=== PATIENT | female | born 1965 | race Caucasian/White ===

== ENCOUNTER 2017-02-20 19:37 | Emergency (ER) | payer BC ==
--- NOTE | 2017-02-20 22:26 | ED ---
HPI Diabetic - HPI Summary HPI Summary: DM 2, hypothyroid pt here w/ low blood sugar yesterday and today. Yesterday, was at work passing meds when she noticed she felt sweaty and sick - figured this was low blood sugar so ate some ana crackers and 2 juices. When she checked her blood glucose it was 120. [place] fine the rest of the day. Then this morning, she had a protein bar for breakfast. Took her metformin 30 minutes later. She's had URI sx over the past 4 days as well and didn't want to cough all over at work today so took a Dayquil this morning (w/ dextromethorphan , phenylephrine and acetaminophen). Then on her way to work a few hours later, had a peanut butter and jelly sandwich. Right before going into work, took another Dayquil (4 hours after 1st dose this morning) and not even an hour later , had lightheadedness, sweats and dizziness. [place] like her blood sugar was low again and when she checked it, was 76 at 16:30. She ate some mini candy bars followed by a meal of chicken w/ potatoes at 18:30. Blood glucose was 87 at 19: 00 so she had a protein bar as well. Feels better now, but still not quite herself. Not sure when or what her last HGA1C was. Reports she had a brief moment of chest pain on her way here tonight - believes this was anxiety as she' s had it before with anxiety. Denies jaw pain, N/V, SOB, diaphoresis, worsening of fatigue w/ this and it passed quickly when she talked calmly with herself and reduced her anxiety. Reports she had borderline diabetes for years and then 1.5 years ago was rx'd metformin which she takes 500mg BID w/ meals. She has never had any issues with this medication nor has she had low blood sugar before. She denies change in diet and no more caffeine than usual. Reports she typically drinks 2 bottles of Diet Pepsi a day and today only got through 1/2 of one bottle. Does not use tobacco, cocaine, etc. No ETOH as of late. Has not been more physically active than usual but does report a lot of stress lately d/t multiple deaths in the family. She also believes she contracted her URI sx from her grandson who has had a cough and she's been with him in close quarters. Denies fever, chill, ST, rhinorrhea, nasal congestion, ST, trouble breathing, N/ V/D, ab pain. Appetite has been fine. No rash. Again, took dayquil as she's had a dry, annoying tickle in her throat cough - otherwise handling URI well. She also has hypothyroidism and has taken 112mcg of synthroid for years. Not sure last time she had her thyroid assessed. - History Of Current Complaint Chief Complaint: EDDiabeticProb Time Seen by Provider: 02/20/17 21:25 Hx Obtained From: Patient, Family/Disaster Recovery Specialist - niece - Allergies/Home Medications Allergies/Adverse Reactions: Allergies Allergy/AdvReac Type Severity Reaction Status Date / Time Procaine [From Novocain] Allergy Severe Airway Verified 02/20/17 20:05 Obstruction Celecoxib [From Celebrex] Allergy Unknown Verified 02/20/17 20:05 Reaction Details Ketorolac Tromethamine AdvReac Headache Verified 02/20/17 20:05 [From Toradol] PMH/Surg Hx/FS Hx/Imm Hx Previously Healthy: Yes Endocrine/Hematology History: Reports: Hx Diabetes - type 2, Other Endocrine/ Hematological Disorders - 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); hypothyriodism Denies: Hx Thyroid Disease Cardiovascular History: Reports: Hx Hypercholesterolemia - triglyceridemia Denies: Hx Cardiac Arrest, Hx Hypertension, Hx Myocardial Infarction Respiratory History: Reports: Hx Seasonal Allergies, Hx Sleep Apnea - new cpap user Denies: Hx Asthma, Hx Chronic Obstructive Pulmonary Disease (COPD) GI History: Reports: Hx Gastroesophageal Reflux Disease, Other GI Disorders - fatty liver Denies: Hx Ulcer Musculoskeletal History: Reports: Other Musculoskeletal History - joint & neck pain, mylagia, itchy skin, no rash Neurological History: Reports: Hx Headaches, Hx Migraine, Other Neuro Impairments/Disorders - some numbness/tingling (right) arm Psychiatric History: Reports: Hx Depression - Cancer History Hx Chemotherapy: No Hx Radiation Therapy: No - Surgical History Surgery Procedure, Year, and Place: hysterectomy 2004. 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 Negative: Shortness Of Breath Negative: Abdominal Pain, Vomiting, Diarrhea, Nausea Negative: burning, dysuria, discharge, frequency, flank pain Negative: Arthralgia, Myalgia Negative: Rash Neurological: Negative Psychological: Other - SEE hpi All Other Systems Reviewed And Are Negative: Yes Physical Exam Triage Information Reviewed: Yes Vital Signs On Initial Exam: Initial Vitals Temp Pulse Resp BP Pulse Ox 97.0 F 80 16 144/86 98 02/20/17 19:55 02/20/17 19:55 02/20/17 19:55 02/20/17 19:55 02/20/17 19:55 Vital Signs Reviewed: Yes Appearance: Positive: Well-Appearing, No Pain Distress, Obese Skin: Positive: Warm, Dry Head/Face: Positive: Normal Head/Face Inspection Eyes: Positive: Normal, EOMI, Conjunctiva Clear. Negative: Conjunctiva Inflammed, Discharge ENT: Positive: Normal ENT inspection, Hearing grossly normal, Pharynx normal, TMs normal. Negative: Nasal congestion, Nasal drainage, Tonsillar swelling, Tonsillar exudate Neck: Positive: Supple, Nontender Respiratory/Lung Sounds: Positive: Clear to Auscultation, Breath Sounds Present. Negative: Rales, Rhonchi, Wheezes Cardiovascular: Positive: Normal, RRR, S1, S2. Negative: Murmur, Rub Abdomen Description: Positive: Nontender, Soft Bowel Sounds: Positive: Present Musculoskeletal: Positive: Normal, Strength/ROM Intact Neurological: Positive: Normal, Sensory/Motor Intact, Alert, Oriented to Person Place, Time, CN Intact II-III Psychiatric: Positive: Normal - concerned but calm and informative - [place] Coma Scale Coma Scale Total: 15 Diagnostics - Vital Signs Vital Signs Temp Pulse Resp BP Pulse Ox 02/20/17 19:55 97.0 F 80 16 144/86 98 - Laboratory Lab Results: Lab Results 02/20/17 Range/Units 21:31 POC Glucose (mg/dL) 111 H (74-106) mg/dL Result Diagrams: 02/20/17 22:21 02/20/17 22:21 Lab Statement: Any lab studies that have been ordered have been reviewed, and results considered in the medical decision making process. Diabetic Course/Dx - Course Course Of Treatment: Pt reports h/o hypoglycemia past 2 days. Glucose is WNL while here tonight as well as vitals and other labs. Discussed her OTC cold medication w/ phenylephrine could have contributed to sx as well as her chronic stress. No acute life threatening issues found here tonight, including thyroid storm, MT and/or sepsis. Pt is w/o sx since here for the past 5 hours w/o food. Okay to d/c - advised to avoid stimulants, cold meds in general and stop metformin until seen by PCP tomorrow for further guidance. Reviewed danger s/sx of when to return - pt and agree w/ plan. - Diagnoses Provider Diagnoses: Hypoglycemia Discharge - Discharge Plan Condition: Stable Disposition: HOME Patient Education Materials: Diabetic Hypoglycemia (ED) Referrals: Kirt Cam MD [Primary Care Provider] - Additional Instructions: Avoid stimulants (ie. caffeine, chocolate, Sudafed, etc) and cold medicine Eat high fiber, protein rich foods with healthy fat every 3-4 hours Do not over-hydrate Follow-up with PCP tomorrow *If you have chest pain, shortness of breath, fever, vomiting, diarrhea or low blood glucose you cannot increase with food, return to ED
[2017-02-20 22:38] LABS: Hematocrit 41 % (35-47); Hemoglobin 13.8 g/dl (12.0-16.0); Mean Corpuscular HGB Conc 34 g/dl (31-36); Mean Corpuscular Hemoglobin 29 pg (27-31); Mean Corpuscular Volume 85 fL (80-97); Mean Platelet Volume 8 um3 (7.4-10.4); Red Blood Count 4.77 10^6/ul (4.0-5.4); Red Cell Distribution Width 13 % (10.5-15); White Blood Count 9.6 10^3/ul (3.5-10.8)
[2017-02-20 22:43] LABS: Urine Bacteria Absent (Absent); Urine Bilirubin Negative (Negative); Urine Glucose Negative (Negative); Urine Nitrite Negative (Negative)
[2017-02-20 22:55] LABS: Albumin 4.5 g/dL (3.2-5.2); BUN/Creatinine Ratio 14.6 (8-20); C Reactive Protein 3.7 mg/L (< 5.00); Calcium 9.9 mg/dL (8.6-10.3); EGFR African American 94.9 (>60); EGFR Non-African American 73.8 (>60); Globulin 3.3 g/dL (2-4); Potassium 4.1 mmol/L (3.5-5.0); Total Bilirubin 0.3 mg/dL (0.2-1.0); Total Protein 7.8 g/dL (6.4-8.9)
[2017-02-21 00:13] LABS: TSH (Thyroid Stimulating Horm) 0.36 mcIU/mL (0.34-5.60)
[2017-02-21 00:20] LABS: Free T4 1.04 ng/dL (0.61-1.12)
[2017-02-21 00:39] VITALS: BP 119/74
== END 2017-02-21 00:38 | disposition home or self-care (01) ==
LOC: ED 19:37
DX: E16.2 Hypoglycemia, unspecified (principal); R05 Cough; Z86.39 Personal history of other endocrine, nutritional and metabolic disease; Z87.891 Personal history of nicotine dependence
CPT/HCPCS: 36415; 80053; 81003; 81015; 83605; 84439; 84443; 84484; 85025; 86140; 87086; 93005; 99282

== ENCOUNTER 2018-03-17 11:58 | Observation (INO) | payer BC, OTHER ==
--- OUTSIDE RECORDS SUMMARY | 2018-03-17 12:56 | XMS REPORT ---
:1965 External Reference #:[id number] Author Organization [facility] Address [address] [address] Phone [phone] Care Team Providers Name Role Phone Kirt Cam MD Primary Care Physician Unavailable Payers Type Date Identification Numbers Payment Provider Subscriber Commercial Policy Number: [id number] [employer] Gema April PayID: [id number] [address] [address] DAVID Maldonado [address] Medigap Part B Policy Number: [id number] [facility] Ppo Esvin April Group Number: [id number] [address] PayID: [id number] DAVID Albarran [address] Commercial Expires: 2017 Policy Number: [facility] Esvin April [id number] (Oon) Group Number: [id number] [address] PayID: [id number] Problems Date Description Provider Status Onset: 09/22/2012 Multiple joint pain Matthew Diego M.D. Active Onset: 09/22/2012 Immunological Findings Nonspec Matthew Diego M.D. Active Other & Unspec Onset: 12/24/2012 Medications [facility] (Current) Matthew Diego M.D. 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- Family History Date Family Member(s) Problem(s) Comments General non contributory Father Thryroid, HighCHO Mother from breast cancer Siblings Sister w/fibromyalgia, osteoposis; sister w/asthma,HTN,HighCHO Siblings Brother w/highCHO, obesity, HTN Siblings 3 Social History Type Date Description Comments Marital Status Lives With Family Occupation Currently Working Cigarette Use Quit 10 Years Ago ETOH Use Denies alcohol use Smoking Patient is a former smoker Recreational Drug Use Denies Drug Use Daily Caffeine Drinks diet soda 2-3 a day Exercise Type/Frequency Exercises sporadically Allergies, Adverse Reactions, Alerts Date Description Reaction Status Severity Comments 01/20/2012 Novocain active 03/02/2012 Diclofenac gi upset active Medications Medication Date Status Form Strength Qnty SIG Indications Ordering Provider Levothyroxine Sodium 10/19 Active Tablets 112mcg 1 by mouth every day Singulair 10/19 Active Tablets 10mg 1 by mouth every day Lisinopril Active Tablets 10mg 30tab 1 po qd Unknown / s Zocor Active Tablets 40mg 90tab 1 po qhs / s Paxil Active Tablets 40mg 30tab 1 po qd / s Protonix Active Tablets 40mg 1 by / DR mouth every day Tramadol HCL Active Tablets 50mg 1-2 tablets every 6 hours as needed Cyclobenzaprine HCL Active Tablets 5mg take one tablet by mouth every 8 hours prn. may take a second tablet if first not effetive . Januvia Active Tablets 100mg 1 by Other / mouth Physician daily Practices Omeprazole 10/19 Hx Capsules 20mg [address] mouth every day Celebrex 10/19 Hx Capsules 200mg 1 by mouth every day Zyrtec Allergy 10/19 Hx Capsules 10mg 1 by mouth every day as needed Nabumetone 09/21 Hx Tablets 750mg 30tab take one Zsofi s tablet Jeffery, - daily TAPE CUTTING MACHINE OPERATOR 10/19 with food Gabapentin 09/22 Hx Capsules 300mg 120ca 1 po qid 719.49 Zsofia ps Jeffery, - TAPE CUTTING MACHINE OPERATOR 10/19 Hydroxychloroquine 07/14 Hx Tablets 200mg 60tab take 1 719.49 Matthew s tablet Long Diego - by mouth 10/19 twice a /2014 day pt states she is taking once a day Nabumetone 03/02 Hx Tablets 750mg 60tab take 1 Zsofia /2012 s tablet Jeffery, - by mouth TAPE CUTTING MACHINE OPERATOR 09/21 twice a day pt states she is taking once a day Diclofenac Sodium DR 01/22 Hx Tablets 75mg 60tab [address] eusebio Diego M.D. - twice a Cephalexin Hx Capsules 500mg 21cap tid po Unknown /0000 s - 03/25 Protonix Hx Tablets 20mg 90tab [address] eusebio ames - every Vital Signs Date Vital Result Comment 03/10/2018 Height 59 inches 4'11" Weight 239.38 lb Heart Rate 64 /min BP Systolic Sitting 122 mmHg Lue large cuff BP Diastolic Sitting 72 mmHg Lue large cuff Respiratory Rate 16 /min O2 % BldC Oximetry 97 % On Ra BMI (Body Mass Index) 48.3 kg/m2 09/26/2017 Heart Rate 90 /min BP Systolic Sitting 140 mmHg BP Diastolic Sitting 84 mmHg Respiratory Rate 18 /min Body Temperature 97.0 F 09/10/2017 Height 59 inches 4'11" Weight 237.00 lb Heart Rate 76 /min BP Systolic 130 mmHg BP Diastolic 76 mmHg Respiratory Rate 18 /min Body Temperature 98.5 F BMI (Body Mass Index) 47.9 kg/m2 10/20/2015 Height 60 inches 5'0" Weight 240.00 lb Heart Rate 89 /min BP Systolic Sitting 142 mmHg BP Diastolic Sitting 88 mmHg Respiratory Rate 16 /min O2 % BldC Oximetry 96 % BMI (Body Mass Index) 46.9 kg/m2 Neck Circumference in inches 18 09/02/2014 Height 60 inches 5'0" Weight 245.00 lb Heart Rate 69 /min BP Systolic Sitting 144 mmHg LA reg cuff BP Diastolic Sitting 97 mmHg LA reg cuff Body Temperature 97.7 F O2 % BldC Oximetry 96 % BMI (Body Mass Index) 47.8 kg/m2 04/14/2014 Height 60 inches 5'0" Weight 242.75 lb Heart Rate 70 /min BP Systolic Sitting 118 mmHg BP Diastolic Sitting 78 mmHg Pain Level 5 BMI (Body Mass Index) 47.4 kg/m2 10/04/2013 Weight 244.00 lb Heart Rate 72 /min BP Systolic Sitting 132 mmHg BP Diastolic Sitting 80 mmHg 03/25/2013 Height 60 inches 5'0" Heart Rate 70 /min BP Systolic Sitting 128 mmHg BP Diastolic Sitting 78 mmHg 12/24/2012 Height 60 inches 5'0" Weight 225.00 lb Heart Rate 77 /min BP Systolic Sitting 124 mmHg BP Diastolic Sitting 71 mmHg BMI (Body Mass Index) 43.9 kg/m2 09/22/2012 Height 60 inches 5'0" Weight 236.00 lb Heart Rate 72 /min BP Systolic Sitting 128 mmHg BP Diastolic Sitting 66 mmHg BMI (Body Mass Index) 46.1 kg/m2 07/14/2012 Weight 233.00 lb Heart Rate 70 /min BP Systolic 140 mmHg BP Diastolic 90 mmHg 03/02/2012 Height 61 inches 5'1" Weight 238.00 lb Heart Rate 76 /min BP Systolic Sitting 123 mmHg BP Diastolic Sitting 74 mmHg BMI (Body Mass Index) 45.0 kg/m2 01/20/2012 Height 61 inches 5'1" Weight 240.00 lb Heart Rate 78 /min BP Systolic Sitting 129 mmHg BP Diastolic Sitting 76 mmHg BMI (Body Mass Index) 45.3 kg/m2 Results Test Date Test Result H/L Range Note CBC Auto Diff 10/25/2014 White Blood Count 4.4 10^3/uL Low 4.8-10.8 Red Blood Count 3.83 10^6/uL Low 4.0-5.4 Hemoglobin 13.5 g/dL 12.0-16.0 Hematocrit 37 % 35-47 Mean Corpuscular Volume 97 fL 80-97 Mean Corpuscular Hemoglobin 35 pg High 27-31 Mean Corpuscular HGB Conc 36 g/dL 31-36 Red Cell Distribution Width 13 % 10.5-15 Platelet Count 224 10^3/uL 150-450 Mean Platelet Volume 8 um3 7.4-10.4 Abs Neutrophils 2.1 10^3/uL 1.5-7.7 Abs Lymphocytes 1.8 10^3/uL 1.0-4.8 Abs Monocytes 0.4 10^3/uL 0-0.8 Abs Eosinophils 0.1 10^3/uL 0-0.6 Abs Basophils 0.1 10^3/uL 0-0.2 Abs Nucleated RBC 0 10^3/uL Granulocyte % 47.2 % 38-83 Lymphocyte % 40.1 % 25-47 Monocyte % 8.5 % 1-9 Eosinophil % 3.0 % 0-6 Basophil % 1.2 % 0-2 Nucleated Red Blood Cells % 0 Comp Metabolic Panel 10/25/2014 Sodium 138 mmol/L 133-145 Potassium 4.2 mmol/L 3.5-5.0 Chloride 103 mmol/L 101-111 Co2 Carbon Dioxide 29 mmol/L 22-32 Anion Gap 6 mmol/L 2-11 Glucose 101 mg/dL High 70-100 Blood Urea Nitrogen 10 mg/dL 6-24 Creatinine 0.56 mg/dL 0.51-0.95 BUN/Creatinine Ratio 17.9 8-20 Calcium 9.5 mg/dL 8.6-10.3 Total Protein 6.9 g/dL 6.4-8.9 Albumin 4.4 g/dL 3.2-5.2 Globulin 2.5 g/dL 2-4 Albumin/Globulin Ratio 1.8 1-3 Total Bilirubin 0.40 mg/dL 0.2-1.0 Alkaline Phosphatase 81 U/L 34-104 Alt 25 U/L 7-52 Ast 18 U/L 13-39 Egfr Non- 115.5 >60 Egfr 148.6 >60 1 Laboratory test finding 10/25/2014 Erythrocyte Sed Rate 21 mm/Hr High 0- 14 C Reactive Protein 4.20 mg/L < 5.00 2 [place] (Anti-Nuclear AB) Screen Negative Negative CBC Auto Diff 04/07/2014 White Blood Count 6.2 10^3/uL 4.8-10.8 Red Blood Count 3.42 10^6/uL Low 4.0-5.4 Hemoglobin 12.4 g/dL 12.0-16.0 Hematocrit 34 % Low 35-47 Mean Corpuscular Volume 99 fL High 80-97 Mean Corpuscular Hemoglobin 36 pg High 27-31 Mean Corpuscular HGB Conc 37 g/dL High 31-36 Red Cell Distribution Width 13 % 10.5-15 Platelet Count 193 10^3/uL 150-450 Mean Platelet Volume 9 um3 7.4-10.4 Abs Neutrophils 3.3 10^3/uL 1.5-7.7 Abs Lymphocytes 2.1 10^3/uL 1.0-4.8 Abs Monocytes 0.5 10^3/uL 0-0.8 Abs Eosinophils 0.2 10^3/uL 0-0.6 Abs Basophils 0.1 10^3/uL 0-0.2 Abs Nucleated RBC 0 10^3/uL Comp Metabolic Panel 04/07/2014 Sodium 137 mmol/L 133-145 Potassium 4.1 mmol/L 3.7-5.6 Chloride 103 mmol/L 101-111 Co2 Carbon Dioxide 28 mmol/L 22-32 Anion Gap 6 mmol/L 2-11 Glucose 91 mg/dL 70-100 Blood Urea Nitrogen 11 mg/dL 6-24 Creatinine 0.56 mg/dL 0.51-0.95 BUN/Creatinine Ratio 19.6 8-20 Calcium 9.1 mg/dL 8.6-10.3 Total Protein 6.6 g/dL 6.4-8.9 Albumin 4.1 g/dL 3.2-5.2 Globulin 2.5 g/dL 2-4 Albumin/Globulin Ratio 1.6 1-3 Total Bilirubin 0.30 mg/dL 0.2-1.0 Alkaline Phosphatase 73 U/L 34-104 Alt 23 U/L 7-52 Ast 18 U/L 13-39 Egfr Non- 116.0 >60 Egfr 149.2 >60 3 Laboratory test finding 04/07/2014 Erythrocyte Sed Rate 21 mm/Hr High 0- 14 C Reactive Protein 2.89 mg/L < 5.00 4 [place] (Anti-Nuclear AB) Screen Negative Negative Manual Differential 04/07/2014 Neutrophil % 61 % 38-83 Lymphocytes % 31 % 25-47 Monocytes % 3 % 0-13 Eosinophils % 4 % 0-6 Basophil % 1 % 0-2 RBC Morphology Normal Normal Urinalysis 09/22/2013 Urine Color Yellow Urine Appearance Clear Urine Specific Baisden 1.028 1.010-1.030 Urine Esterase Negative Negative Urine Nitrate Negative Negative Urine Urobilinogen Negative E.U./dL Negative Urine Protein Negative mg/dL Negative Urine pH 5.5 5-9 Urine Blood Negative Negative Urine Ketones Negative mg/dL Negative Urine Bilirubin 1+ Negative Urine Glucose Negative mg/dL Negative Laboratory test finding 09/22/2013 [place] (Anti-Nuclear AB) Negative Negative 5 Screen Comp Metabolic Panel 09/22/2013 Sodium 136 mmol/L 133-145 Potassium 4.1 mmol/L 3.5-5.0 Chloride 100 mmol/L Low 101-111 Co2 Carbon Dioxide 30.0 mmol/L 22-32 Anion Gap 6.0 mmol/L 2-11 Glucose 147 mg/dL High 70-100 Blood Urea Nitrogen 9 mg/dL 6-24 Creatinine 0.70 mg/dL 0.50-1.40 BUN/Creatinine Ratio 12.9 8-20 Calcium 9.6 mg/dL 8.1-9.9 Total Protein 6.5 g/dL 6.2-8.1 Albumin 4.4 g/dL 3.6-5.4 Globulin 2.1 g/dL 2-4 Albumin/Globulin Ratio 2.1 1-3 Total Bilirubin 0.8 mg/dL 0.4-1.5 Alkaline Phosphatase 80 U/L 30-110 Alt 44 U/L 14-54 Ast 40 U/L 12-42 Egfr Non- 89.7 >60 Egfr 115.4 >60 6 Laboratory test 09/22/2013 C Reactive Protein < 0.5 mg/dL Less than 0.5 finding Erythrocyte Sed Rate 10 mm/Hr 0-14 Laboratory test finding 01/11/2013 [facility] (Anti-Nuclear AB) Negative Negative 7 Screen Neutrophil Cytoplasmic AB 01/11/2013 C-Anca Negative Negative P Anca Negative Negative Anca Reviewed By MD Miguelangel Cheney <SEE NOTE> 8 Laboratory test finding 01/11/2013 C Reactive Protein 1.0 mg/dL High Less than 0.5 Erythrocyte Sed Rate 11 mm/Hr 0-14 Comp Metabolic Panel 01/11/2013 Sodium 136 mmol/L 133-145 Potassium 3.7 mmol/L 3.5-5.0 Chloride 104 mmol/L 101-111 Co2 Carbon Dioxide 26.0 mmol/L 22-32 Anion Gap 6.0 mmol/L 2-11 Glucose 89 mg/dL 70-100 Blood Urea Nitrogen 12 mg/dL 6-24 Creatinine 0.70 mg/dL 0.50-1.40 BUN/Creatinine Ratio 17.1 8-20 Calcium 8.9 mg/dL 8.1-9.9 Total Protein 6.9 g/dL 6.2-8.1 Albumin 4.3 g/dL 3.6-5.4 Globulin 2.6 g/dL 2-4 Albumin/Globulin Ratio 1.7 1-3 Total Bilirubin 0.7 mg/dL 0.4-1.5 Alkaline Phosphatase 74 U/L 30-110 Alt 38 U/L 14-54 Ast 23 U/L 12-42 Egfr Non- 90.1 >60 Egfr 115.9 >60 9 CBC With Manual Diff 01/11/2013 White Blood Count 6.1 10^3/uL 4.8-10.8 Red Blood Count 3.79 10^6/uL Low 4.0-5.4 Hemoglobin 13.7 g/dL 12.0-16.0 Hematocrit 38 % 35-47 Mean Corpuscular Volume 99 fL High 80-97 Mean Corpuscular Hemoglobin 36 pg High 27-31 Mean Corpuscular HGB Conc 37 g/dL High 31-36 Red Cell Distribution Width 13 % 10.5-15 Platelet Count 188 10^3/uL 150-450 Mean Platelet Volume 9 um3 7.4-10.4 Abs Neutrophils 3.0 10^3/uL 1.5-7.7 Abs Lymphocytes 2.4 10^3/uL 1.0-4.8 Abs Monocytes 0.4 10^3/uL 0-0.8 Abs Eosinophils 0.2 10^3/uL 0-0.6 Abs Basophils 0 10^3/uL 0-0.2 Abs Nucleated RBC 0 10^3/uL Neutrophil % 54 % 38-83 Lymphocytes % 43 % 25-47 Monocytes % 3 % 0-13 RBC Morphology Normal Normal CBC With Manual Diff 10/14/2012 White Blood Count 4.2 10^3/uL Low 4.8- 10.8 Red Blood Count 4.29 10^6/uL 4.0-5.4 Hemoglobin 14.2 g/dL 12.0-16.0 Hematocrit 40 % 35-47 Mean Corpuscular Volume 93 fL 80-97 Mean Corpuscular Hemoglobin 33 pg High 27-31 Mean Corpuscular HGB Conc 36 g/dL 31-36 Red Cell Distribution Width 13 % 10.5-15 Platelet Count 186 10^3/uL 150-450 Mean Platelet Volume 9 um3 7.4-10.4 Abs Neutrophils 2.0 10^3/uL 1.5-7.7 Abs Lymphocytes 1.7 10^3/uL 1.0-4.8 Abs Monocytes 0.3 10^3/uL 0-0.8 Abs Eosinophils 0.1 10^3/uL 0-0.6 Abs Basophils 0 10^3/uL 0-0.2 Abs Nucleated RBC 0 10^3/uL Neutrophil % 48.0 % 38-83 Band % 0 % 0-8 Lymphocytes % 43.0 % 25-47 Monocytes % 5.0 % 0-13 Eosinophils % 2.0 % 0-6 Basophil % 0 % 0-2 Reactive Lymph % 2.0 % 0-6 Metamyelocytes % 0 % 0-2 Myelocytes % 0 % 0-1 Promyelocytes % 0 % Blast % 0 % RBC Morphology Normal Normal Laboratory test finding 10/14/2012 Erythrocyte Sed Rate 17 MM/HR High 0- 14 C Reactive Protein 1.2 mg/dL High Less Than 0.5 [place] (Anti-Nuclear AB) Screen Negative Negative 10 Phyllis Screen Negative Negative 11 Anti Double Stranded Dna Negative Negative 12 Urinalysis 10/14/2012 Urine Color Yellow Urine Appearance Clear Urine Specific [place]den 1.014 1.010-1.030 Urine Esterase Negative Negative Urine Nitrate Negative Negative Urine Urobilinogen Negative Negative Urine Protein Negative Negative Urine pH 5.5 5-9 Urine Blood Negative Negative Urine Ketones Negative Negative Urine Bilirubin Negative Negative 13 Urine Glucose Negative Negative CBC With Manual Diff 07/24/2012 White Blood Count 6.1 CUMM 4.8-10.8 Red Cell Count 3.60 CUMM Low 4.2-5.4 Hemoglobin 14.0 g/dL 12.0-16.0 Hematocrit 36 % 35-47 Mean Corpuscular Volume 100 um3 High 79-97 Mean Corpuscular Hemoglob 39 pg High 27-31 Mean Corpuscular HGB Cone 39 g/dL High 32-36 Redcell Distribution WDTH 12 % 10.5-15 Platelet Count 213 CUMM 150-450 Mean Platelet Volume 9.1 um3 7.4-10.4 Absolute Neutrophil Count 3.5 1.5-7.7 Polysegmented Neutrophil 65 % 38-83 Lymphocyte 29 % 25-47 Monocyte 3 % 0-13 Eosinophil 2 % 0-6 Atypical Lymph 1 % 0-6 Macrocytosis 1+ Laboratory test finding 07/24/2012 Erythrocyte Sed Rate 20 MM/HR High 0- 15 C Reactive Protein 1.2 mg/dL High Less Than 0.5 [place] (Antinuclear Antibodies) 07/24/2012 Antinuclear AB POSITIVE (NEG) [facility] Pattern HOMOGENEOUS Antinuclear AB 1:80 [facility] Rev By MD OCTAVIANO LOUISE <SEE NOTE> 14 Laboratory test finding 07/24/2012 Phyllis Screen NEGATIVE Negative 15 Comp Metabolic Panel 07/24/2012 Sodium 134 mmol/L Low 135-145 Potassium 4.3 mmol/L 3.5-5.0 Chloride 100 mmol/L Low 101-111 Co2 (Carbon Dioxide) 27.0 mmol/L 22-32 Anion Gap 7.0 mmol/L 2-11 16 Glucose 88 mg/dL 70-100 BUN 8 mg/dL 6-24 Creatinine 0.8 mg/dL 0.50-1.40 One Over Creatinine 1.25 BUN/Creatinine Ratio 10.0 8-20 Calcium 9.4 mg/dL 8.1-9.9 Total Protein 6.9 GM/DL 6.2-8.1 Albumin 4.3 GM/DL 3.6-5.4 Globulin 2.6 GM/DL 2-4 Albumin/Globulin Ratio 1.7 1-3 Bilirubin Total 0.8 mg/dL 0.4-1.5 17 Alkaline Phosphatase 79 U/L 30-110 Alt (SGPT) 33 U/L 14-54 Ast (Sgot) 27 U/L 12-42 eGFR Non- 77.6 > 60 eGFR 99.8 > 60 18 1 Because ethnic data is not always readily available, this report includes an eGFR for both -Americans and non- Americans. The National Kidney Disease Education Program (NKDEP) does not endorse the use of the MDRD equation for patients that are not between the ages of 18 and 70, are , have extremes of body size, muscle mass, or nutritional status, or are non- or non-. According to the National Kidney Foundation, irrespective of diagnosis, the stage of the disease is based on the level of kidney function: Stage Description GFR(mL/min/1.73 m(2)) 1 Kidney damage with normal or decreased GFR 90 2 Kidney damage with mild decrease in GFR 60-89 3 Moderate decrease in GFR 30-59 4 Severe decrease in GFR 15-29 5 Kidney failure <15 (or dialysis) 2 Acute inflammation: >10.00 3 Because ethnic data is not always readily available, this report includes an eGFR for both -Americans and non- Americans. The National Kidney Disease Education Program (NKDEP) does not endorse the use of the MDRD equation for patients that are not between the ages of 18 and 70, are , have extremes of body size, muscle mass, or nutritional status, or are non- or non-. According to the National Kidney Foundation, irrespective of diagnosis, the stage of the disease is based on the level of kidney function: Stage Description GFR(mL/min/1.73 m(2)) 1 Kidney damage with normal or decreased GFR 90 2 Kidney damage with mild decrease in GFR 60-89 3 Moderate decrease in GFR 30-59 4 Severe decrease in GFR 15-29 5 Kidney failure <15 (or dialysis) 4 Acute inflammation: >10.00 5 @Sample frozen by [id number] at 2007 on 09/22/13. 6 Because ethnic data is not always readily available, this report includes an eGFR for both -Americans and non- Americans. The National Kidney Disease Education Program (NKDEP) does not endorse the use of the MDRD equation for patients that are not between the ages of 18 and 70, are , have extremes of body size, muscle mass, or nutritional status, or are non- or non-. According to the National Kidney Foundation, irrespective of diagnosis, the stage of the disease is based on the level of kidney function: Stage Description GFR(mL/min/1.73 m(2)) 1 Kidney damage with normal or decreased GFR 90 2 Kidney damage with mild decrease in GFR 60-89 3 Moderate decrease in GFR 30-59 4 Severe decrease in GFR 15-29 5 Kidney failure <15 (or dialysis) 7 @Sample frozen by [id number] at 2006 on 01/11/13. 8 Miguelangel Heller 9 Because ethnic data is not always readily available, this report includes an eGFR for both -Americans and non- Americans. The National Kidney Disease Education Program (NKDEP) does not endorse the use of the MDRD equation for patients that are not between the ages of 18 and 70, are , have extremes of body size, muscle mass, or nutritional status, or are non- or non-. According to the National Kidney Foundation, irrespective of diagnosis, the stage of the disease is based on the level of kidney function: Stage Description GFR(mL/min/1.73 m(2)) 1 Kidney damage with normal or decreased GFR 90 2 Kidney damage with mild decrease in GFR 60-89 3 Moderate decrease in GFR 30-59 4 Severe decrease in GFR 15-29 5 Kidney failure <15 (or dialysis) 10 @Sample frozen by [id number] at 2113 on 10/14/12. 11 The above PHYLLIS screen is designed for the detection of antibodies to extractable nuclear antigen (PHYLLIS) in human serum. It is a combination test for the detection of antibodies to SIZING END BANDER, Sm, SS-A (Ro), and SS-B (La) nuclear antigens. 12 @Sample frozen by [id number] at 2113 on 10/14/12. 13 Effective 10/14/12, bilirubin confirmation by ictotest is discontinued. False-positive results for bilirubin may occur due to color interference from large amounts of blood in the urine, very concentrated urine, or drugs that discolor urine such as phenazopyridine(Pyridium). 14 TheInfoPro 15 The above PHYLLIS screen is designed for the detection of antibodies to extractable nuclear antigen (PHYLLIS) in human serum. It is a combination test for the detection of antibodies to SIZING END BANDER, Sm, SS-A (Ro), and SS-B (La) nuclear antigens. 16 Anion gap measurement may be of limited value in the presence of any alkalosis, especially in a combined acid base disorder. . 17 A metabolite of Naproxen, O-desmethylnaproxen, has been shown to interfere with the Jendrassik-Fronton method for measuring total bilirubin. Samples from patients who have taken Naproxen have shown spurious elevation in total bilirubin levels. 18 Because ethnic data is not always readily available, this report includes an eGFR for both -Americans and non- Americans. The National Kidney Disease Education Program (NKDEP) does not endorse the use of the MDRD equation for patients that are not between the ages of 18 and 70, are , have extremes of body size, muscle mass, or nutritional status, or are non- or non-. According to the National Kidney Foundation, irrespective of diagnosis, the stage of the disease is based on the level of kidney function: Stage Description GFR(mL/min/1.73 m(2)) 1 Kidney damage with normal or decreased GFR 90 2 Kidney damage with mild decrease in GFR 60-89 3 Moderate decrease in GFR 30-59 4 Severe decrease in GFR 15-29 5 Kidney failure <15 (or dialysis) Procedures Date CPT Code Description Status 03/24/2014 74057 Polysomnography Sleep Staging 4+ Parameters W/Cpap Completed 03/03/2014 21413 Polysomnography Sleep Staging 4+ Parameters W/Cpap Completed 01/27/2014 15377 ECHO Stress Test Incl Perf Contiuous ekg Monitoring Completed W/Phys Superv Encounters Type Date Location Provider CPT E/M Dx Office Visit 09/26/2017 [facility], 67486 R10.11 2:00p Daphney MCDONALD Office Visit 09/10/2017 [facility], 55992 R10.11 3:15p Daphney MCDONALD Office Visit 10/20/2015 [facility] Alpa Slaughter, 96280 G47.33 2:30p [facility] SWARTZ RN, ERICA Office Visit 09/02/2014 [facility] Alpa Slaughter, 56986 327.23 10:30a [facility] SWARTZ RN, [facility] Office Visit 04/14/2014 [facility] JOSELYN Saxena 95692 795.79 3:30p Of Daphney 719.49 V58.69 Office Visit 02/11/2014 3:08p [facility] Wilfred Rodrigues, 95385 780.57 MAmira 786.09 Office Visit 10/04/2013 3:00p Rheumatology Services JOSELYN Saxena 18681 719.49 Of Daphney 795.79 V58.69 Office Visit 03/25/2013 9:00a Rheumatology Services JOSELYN Saxena 33382 719.49 Of [place]aph[facility] 795.79 V58.69 Office Visit 12/24/2012 9:00a Rheumatology Services Matthew Diego 17717 719.49 Of Daphney Alves 795.79 V58.69 Office Visit 09/22/2012 9:00a Rhe[facility]ology Services Matthew Diego 83426 719.49 Of Daphney Alves 795.79 Office Visit 07/14/2012 8:20a Rheumatology Services Matthew Diego 27910 719.49 Of Daphney Alves 795.79 Office Visit 03/02/2012 3:20p Rheumatology Services Matthew Diego, 75101 719.49 Of [facility] Lara.Disha 795.79 Office Visit 01/20/2012 2:00p Rheumatology Services Matthew Diego, 92489 795.79 Of [facility] Long 719.49 Plan of Care Future Appointment(s):09/04/2018 9:45 am - Alpa Slaughter DNP, RN, TAPE CUTTING MACHINE OPERATOR-BC at [facility]03/10/2018 - Alpa Slaughter DNP, RN, TAPE CUTTING MACHINE OPERATOR- BCG47.33 Obstructive sleep apnea (adult) (pediatric)Comments:Sleep Apnea - AHI 90.7, oxygen sat 73% bertrand 2013 On BiPAP AHI 1/hourFollow up:6 monthsRecommendations:Continue PAP device, Benefitting and compliant with treatment. If you have any sleepiness while driving you MUST avoid operating a vehicle or machinery. If you have difficulty with your equipment, or need to replace your mask or hoses, please contact your homecare agency. A weight change of 20 pounds or more may have an effect on your equipment; if you are experiencing problems please call for an appointment. If you have any further questions, please call the [facility] at [phone].Z29.82 Inadequate sleep hygieneRecommendations:Since you get up at 430 AM, you need to go to bed no later than 830 PM. If you are sleeping 8 hoursper night you may be able to sleep until 5 AM (9PM-5AM). You said your shift ends at 330 PM, shoulddecide to leave work no later than 4 or 430 PM. Have dinner by 6 PM and to bed 8-830 PM (as discussed). If you sleep only 6 1/2 hours per night you will be tired even though the apnea is well treated.Z68.42 Body mass index (BMI ) 45.0-49.9, adultRecommendations:Eating earlier and choosing healthy foods should lead to weight loss. Start weight loss efforts by changing your diet, starting exercise (15 minute walk a day).
[2018-03-17 13:02] LABS: ABS Basophils 0.1 10^3/ul (0-0.2); ABS Eosinophils 0.2 10^3/ul (0-0.6); ABS Lymphocytes 2.1 10^3/ul (1.0-4.8); ABS Monocytes 0.6 10^3/ul (0-0.8); ABS Neutrophils 5.2 10^3/ul (1.5-7.7); ABS Nucleated RBC 0 10^3/ul; Eosinophil % 2.5 % (0-6); Hematocrit 40 % (35-47); Hemoglobin 13.8 g/dl (12.0-16.0); Lymphocyte % 26.1 % (25-47); Mean Corpuscular HGB Conc 34 g/dl (31-36); Mean Corpuscular Hemoglobin 29 pg (27-31); Mean Corpuscular Volume 85 fL (80-97); Nucleated Red Blood Cells % 0.1; Platelet Count 227 10^3/ul (150-450); Red Blood Count 4.74 10^6/ul (4.0-5.4); Red Cell Distribution Width 13 % (10.5-15); White Blood Count 8.2 10^3/ul (3.5-10.8)
[2018-03-17 14:14] LABS: EGFR Non-African American 103.4 (>60)
[2018-03-17 14:27] LABS: Urine Appearance Clear; Urine Blood Negative (Negative); Urine Color Yellow; Urine Ketones Negative (Negative); Urine Protein Negative (Negative); Urine Urobilinogen Negative (Negative)
[2018-03-17] MEDS ORDERED: Nitroglycerin TAB 0.4 MG* 0.4 MG TAB SL ONE (14:28)
[2018-03-17] MEDS ORDERED: Aspirin 81 mg CHEW TAB* 81 MG TAB.CHEW PO ONE (14:28)
[2018-03-17] MEDS ORDERED: Aspirin 81 mg CHEW TAB* 81 MG TAB.CHEW ONE (14:29)
[2018-03-17] MEDS ORDERED: Dextrose 50% Syringe 50 ML* 25 GM/50 ML SYRINGE IV PUSH PRN (15:08)
--- NOTE | 2018-03-17 16:56 | RAD ---
HISTORY: Chest pain COMPARISONS: November 14, 2004 VIEWS: 4: Frontal dual-energy and lateral views of the chest. FINDINGS: CARDIOMEDIASTINAL SILHOUETTE: The cardiomediastinal silhouette is normal. FELICE: The felice are normal. PLEURA: The costophrenic angles are sharp. No pleural abnormalities are noted. LUNG PARENCHYMA: The lung volumes are low. The lungs are clear accounting for the phase of inspiration. ABDOMEN: The upper abdomen is clear. There is no subphrenic gas. BONES AND SOFT TISSUES: No bone or soft tissue abnormalities are noted. OTHER: None. IMPRESSION: LOW LUNG VOLUMES. NO ACTIVE CARDIOPULMONARY DISEASE.
--- NOTE | 2018-03-17 18:26 | HP ---
CC: Dr. Cam * HISTORY AND PHYSICAL: DATE OF ADMISSION: 03/17/18 PROVIDER: Lizette Begum NP ATTENDING PHYSICIAN: Dr. Camp * (report dictated by Lizette Begum NP). PRIMARY CARE DOCTOR: Dr. Cam. CHIEF COMPLAINT: Palpitations, chest discomfort. HISTORY OF PRESENT ILLNESS: Ms. Mendoza is a 52-year-old female with a past medical history of avl-jupjulo-oqpntbhxh type 2 diabetes, obesity, hypertension , hyperlipidemia, hypothyroidism and sleep apnea, who presents to the emergency department today from work with concern for palpitations with chest discomfort. 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 She reports that this is not uncommon for her; however, usually they resolve and today she reports they were continuous and she became concerned because she developed some light chest discomfort across the left chest wall and her work called the ambulance and she was brought to the emergency department for further evaluation. In the emergency department, she presents with a troponin of 0.01 and an EKG showing sinus rhythm with premature ventricular complexes. She reports that the chest discomfort has come and gone since being in the emergency department, reporting that it is a light pressure across her left chest wall, she denies any radiation or diaphoresis or nausea. It is noted during assessment that she has frequent PVCs on the monitor, in which she reports that she feels in her chest. She denies shortness of breath. She reports otherwise she has been in fairly good health with no recent illnesses. She reports that she is currently under the care of Dr. Cam and he has been managing her diabetes in which she was recently taken off a diabetic medication because it was upsetting her stomach and she feels that her blood sugars have been a little bit too high around the 180 to 200 range. PAST MEDICAL HISTORY: 1. Hypertension. 2. Obesity. 3. Vwk-fzasgis-ikbrmrqyz type 2 diabetes. 4. Hyperlipidemia. 5. Hypothyroidism. 6. Sleep apnea. 7. Status post hysterectomy with ovaries spared. 8. Prior history of tobacco abuse. CURRENT MEDICATIONS: 1. Januvia 100 mg p.o. daily. 2. Singulair 10 mg p.o. daily. 3. Tramadol 50 to 100 mg p.o. q.6 hours p.r.n. 4. Zocor 40 mg p.o. daily. 5. Protonix 40 mg p.o. daily. 6. Paxil 40 mg p.o. daily. 7. Lisinopril 10 mg p.o. daily. 8. Synthroid 112 mcg p.o. q.a.m. 9. Flexeril 5 to 10 mg p.o. at bedtime p.r.n. ALLERGIES: TORADOL, PROCAINE, CELEBREX, "EVELYN FAMILY." FAMILY HISTORY: Reports her grandfather has a history of coronary artery disease and history of TIA. Mother has history of breast cancer and diabetes. SOCIAL HISTORY: History of tobacco abuse, smoking 1 pack of cigarettes a day on and off for 20 years, quitting approximately 12 years ago. The patient reports she never uses alcohol. 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 She is and lives at home with her and has 2 children. Her , Aldo Mendoza, is her healthcare proxy. REVIEW OF SYSTEMS: A 14-point review of systems was performed. All the pertinent positives and negatives are mentioned in the history of present illness. Otherwise negative. PHYSICAL EXAMINATION GENERAL APPEARANCE: A 52-year-old female, obese, sitting up on the bed, alert and oriented x3, in no acute distress. VITAL SIGNS: Temperature 98.6, heart rate 93, respirations 16, O2 sat 98% on room air, blood pressure 125/84. HEENT: Head is normocephalic, atraumatic. Pupils are equal and reactive to light. Oropharynx is clear. Moist mucous membranes. NECK: Supple. LUNGS: Clear to auscultation bilaterally. Good aeration throughout. CARDIAC: S1, S2. Regular rate and rhythm. Occasionally noted irregular beat. No lower extremity edema noted. ABDOMEN: Obese, soft, nontender, nondistended. Normal bowel sounds throughout. EXTREMITIES: Strength is 5/5 throughout. No clubbing, cyanosis, or edema. NEURO: Cranial nerves II through XII are grossly intact. ASSESSMENT AND PLAN: Ms. Mendoza is a 52-year-old female with a past medical history of morbid obesity, history of tobacco abuse, vci-mowweeo-efkefhxdo type 2 diabetes, hypertension, hyperlipidemia, hypothyroidism and sleep apnea, who presents to the emergency department today with continuous palpitations and chest discomfort. 1. Chest pain. The patient will be admitted to the hospitalist service on observation to the telemetry unit. Her initial troponin 0.01. These will be continued to be trended q.3 hours. EKG has no noted ST changes and there are noted PVCs. Her DAQUAN score is 1; however, she does have cardiac risk factors such as hypertension, history of tobacco abuse, diabetes, elevated cholesterol, obesity, and family history of cardiac disease. The plan will be for a nuclear exercise stress test in the morning. NPO after midnight. She was given 324 mg of aspirin on arrival to the emergency department. At this point, she is chest pain free and is stable. She did have a D-dimer, which was negative at less than 200. 2. Type 2 diabetes. Plan to hold home oral medication. Continue fingerstick blood glucose a.c. and h.s. with lispro sliding scale. We will add on hemoglobin A1c. I have discussed a possible referral to [facility] as the patient was showing interest in having better control of her diabetes and overall weight. 3. Hypothyroidism. TSH is 0.95. Continue Synthroid home dose. 4. Hypertension, controlled. Continue lisinopril. 5. Hyperlipidemia. Continue Lipitor. 6. DVT prophylaxis: Heparin subcu. 7. Code status: Full code. 8. Hospital status: Observation. TIME SPENT: Approximately 60 minutes was spent on this admission. LIZETTE BEUGM, TRINA [id number]/CPS #: [id number] DEBBIE
[2018-03-17] MEDS: Insulin LISPRO* 1 UNITS UNIT SUBCUT SCH ×2 (18:38→21:36)
[2018-03-17] MEDS: Heparin VIAL(*) 5000 UNITS/ML VIAL (FIVE THOUSAND) SUBCUT SCH (21:34)
[2018-03-18] MEDS: Acetaminophen TAB* 325 MG PO PRN ×3 (00:55→14:24)
[2018-03-18] MEDS: Heparin VIAL(*) 5000 UNITS/ML VIAL (FIVE THOUSAND) SUBCUT SCH ×2 (05:41→14:01)
[2018-03-18] MEDS ORDERED: Levothyroxine TAB* 112 MCG TAB PO SCH (06:00)
[2018-03-18 06:29] LABS: ABS Basophils 0 10^3/ul (0-0.2); ABS Eosinophils 0.2 10^3/ul (0-0.6); ABS Lymphocytes 2.8 10^3/ul (1.0-4.8); ABS Monocytes 0.7 10^3/ul (0-0.8); ABS Neutrophils 4.6 10^3/ul (1.5-7.7); ABS Nucleated RBC 0 10^3/ul; Eosinophil % 2.3 % (0-6); Hematocrit 40 % (35-47); Hemoglobin 13.6 g/dl (12.0-16.0); Lymphocyte % 33.4 % (25-47); Mean Corpuscular HGB Conc 34 g/dl (31-36); Mean Corpuscular Hemoglobin 29 pg (27-31); Mean Corpuscular Volume 85 fL (80-97); Mean Platelet Volume 8.3 um3 (7.4-10.4); Nucleated Red Blood Cells % 0.1; Platelet Count 219 10^3/ul (150-450); Red Blood Count 4.68 10^6/ul (4.0-5.4); Red Cell Distribution Width 13 % (10.5-15); White Blood Count 8.3 10^3/ul (3.5-10.8)
[2018-03-18 06:51] LABS: EGFR Non-African American 85.4 (>60)
[2018-03-18] MEDS ORDERED: Lisinopril TAB* 10 MG PO SCH (09:00)
[2018-03-18] MEDS ORDERED: Montelukast Sodium TAB* 10 MG PO SCH (09:00)
[2018-03-18] MEDS ORDERED: Atorvastatin* 20 MG TAB PO SCH (09:00)
[2018-03-18] MEDS ORDERED: PARoxetine HCL TAB* 20 MG PO SCH (09:00)
[2018-03-18] MEDS ORDERED: Ondansetron ODT TAB* 4 MG SL ONE (09:00)
[2018-03-18] MEDS: Insulin LISPRO* 1 UNITS UNIT SUBCUT SCH ×3 (12:27→16:56)
--- NOTE | 2018-03-18 12:40 | RAD ---
Edited for charges. INDICATION: Chest pain, diabetes, hypertension, elevated cholesterol, obesity. COMPARISON: No relevant prior exams available on the [facility] for comparison. TECHNIQUE: 10.350 mCi of Tc-99m Myoview were administered IV. SPECT images of the heart were obtained. Later on the same day. Under the direction of Dr. Snyder, an exercise stress test was performed. The patient achieved a peak heart rate of 169 bpm, 94 % of the age- predicted maximum. Subsequently, the patient was given an IV injection of 25.800 mCi Tc- 99m Myoview. SPECT images of the heart were obtained and a gated wall motion study was performed. FINDINGS: Gated wall motion images were obtained at stress and demonstrate wall motion to be within normal limits. The calculated left ventricular ejection fraction is 69 % at stress. Estimated LEFT ventricular end diastolic volume is 66 mL. TID 0.84. Obesity limits image quality. Based on review of the attenuation corrected and non corrected images the distribution of radiopharmaceutical within the myocardium on the stress and rest images is within normal limits. No fixed or reversible regions of hypoperfusion evident. IMPRESSION: 1. No evidence for stress induced myocardial ischemia or presence of an infarct. 2. Normal left ventricular wall motion and ejection fraction. ASSESSMENT: Low risk based on nuclear portion. Based on imaging criteria from ACC/AHA 2002 Guideline Update for the Management of Patients With Chronic Stable Angina Table 23. Noninvasive Risk Stratification. MTDD
[2018-03-18 16:25] VITALS: BP 123/68
--- NOTE | 2018-03-19 04:08 | DS ---
CC: Dr. Cam.* DISCHARGE SUMMARY: DATE OF ADMISSION: 03/17/18 DATE OF DISCHARGE: 03/18/18 PROVIDER: Lizette Begum NP ATTENDING PHYSICIAN: Dr. Camp * (report dictated by Lizette Begum NP). PRIMARY CARE PROVIDER: Dr. Cam. DISCHARGE DIAGNOSES: 1. Chest pain, unclear etiology. 2. Palpitations with noted premature ventricular contractions. 3. Shb-wgndgdv-gjdcszytb type 2 diabetes. 4. Obesity. SECONDARY DIAGNOSES: 1. Sleep apnea. 2. Prior history of tobacco abuse. 3. Hyperlipidemia. 4. Hypothyroidism. 5. Gastroesophageal reflux disease. DISCHARGE MEDICATIONS: 1. Januvia 100 mg p.o. daily. 2. Singulair 10 mg p.o. daily. 3. Tramadol 50 to 100 mg p.o. q.6 hours p.r.n. 4. Zocor 40 mg p.o. daily. 5. Protonix 40 mg p.o. daily. 6. Paxil 40 mg p.o. daily. 7. Lisinopril 10 mg p.o. daily. 8. Synthroid 112 mcg p.o. daily. 9. Flexeril 5 to 10 mg p.o. at bedtime p.r.n. HISTORY OF PRESENT ILLNESS AND HOSPITAL COURSE: Please see history and physical by this author for full admission details; but in summary, this is a 52 -year-old female with a past medical history as stated above who presented to the emergency department from work with concerns of chest discomfort and palpitations. She reported she was at work and noted she had palpitations, which is not that unusual for her; however, she had accompanied chest discomfort across her left chest wall and she decided to come in to the emergency department for further evaluation. She was admitted to a telemetry unit with her troponins trended, which were all flat at 0.00. She had no noted EKG changes. She underwent a nuclear exercise stress test in which the impression states, "no evidence for stress induced myocardial ischemia or presence of infarct. Normal left ventricular wall motion and ejection fraction ". It was noted that her left ventricular ejection fraction is 69%. Today, on evaluation, she reports that she has experienced much less palpitations compared to yesterday. She has had continued intermittent occasional palpitations today. She denies any further chest discomfort. No shortness of breath. She reports that when she underwent the stress test, she did not experience any chest discomfort. I did discuss with the patient she will require an outpatient transthoracic echocardiogram. The patient reports she drinks multiple sodas throughout the day as well as she reports poor sleep especially the last few days prior to experiencing this increase of palpitations. She does report she has sleep apnea and does wear her CPAP on a routine basis. We discussed that she needs to adjust lifestyle decisions such as weight loss as well as hemoglobin A1c, which returned at 8.5 and she currently reports a diet high in the carbs and sugar. She showed a lot of interest and asked a lot of questions throughout her hospitalization about lifestyle changes including diet. At this time, she plans to change her lifestyle to reduce her carbs and sugar and caffeine. The patient was instructed to follow up with Dr. Cam in the next 1 to 2 days as the referral for the outpatient echo-cardiogram will have to go through his office. She has been following with him closely in regards to her type 2 diabetes and trying to get medications, which were recently taken off and oral medications that she did not tolerate well and continues on the Januvia; however , she has continued to have high blood sugars in the 180s to 200 range. Again, we discussed diet and lifestyle changes at length. I have given the patient some resources and strongly recommended she reduce carbohydrates, sugar, and increase her exercise regimen. In regards to her palpitations, I side consulted Dr. Morales who said she could benefit from a beta brain in the future if these continue and with a normal ejection fraction safe to discharge home; I did offer to keep the patient and start a beta brain, but she wanted to be discharged home and would like to avoid medication if possible. I do not think it is necessary with a normal ejection fraction and negative stress test to keep her in the hospital for inpatient echo or to start a beta brain at this time looking at the last 24 hours of her strips, they have improved, but are noted to still be present. REVIEW OF SYSTEMS: A 14-point review of systems is performed. All the pertinent positives and negatives as mentioned in the history of present illness , otherwise are negative. PHYSICAL EXAMINATION: Vital Signs: Temperature 97.7, heart rate 81, respirations 16, O2 sat 97% on room air, blood pressure 123/68. General Appearance: Morbidly obese, 52-year-old female, alert and oriented x3, sitting up in bed, in no acute distress, very pleasant. HEENT: Head is normocephalic, atraumatic. Pupils are equal and reactive to light. Oropharynx is clear. Moist mucous membranes. Cardiac: S1 and S2. Regular rate and rhythm. No murmurs, rubs, or gallops appreciated. No lower extremity edema noted. Lungs: Clear to auscultation bilaterally. Good aeration throughout. Abdomen: Obese , soft, nontender, nondistended. Normal bowel sounds throughout. Extremities: No clubbing, cyanosis or edema. Neuro: Alert and oriented x3. No focal deficits noted. DISCHARGE PLAN: 1. Follow up with Dr. Cam in 1 to 3 days. 2. Outpatient echocardiogram, this will have to be ordered by primary care provider. 3. Strongly recommend diet and lifestyle changes and possible referral to [facility]; however, at this time, the patient feels motivated as well as her is a healthy eater and they plan to make some lifestyle changes together. 4. Better diabetes control. Again, this patient may benefit from referral to [facility]. At this time, she reported she is working with Dr. Cam and would like to just continue to work with him, but is open to the idea if she continues to struggle with her blood sugars. 5. Return to emergency department with any further concerning symptoms. TIME SPENT: Approximately 60 minutes was spent on this discharge. LIZETTE BEGUM NP [id number]/CPS #: [id number] DEBBIE
--- NOTE | 2018-03-24 08:42 | ED ---
Rubin Sun Jennifer, scribed for Jace Higuera MD on 03/17/18 at 1224 . Palpitations / Dysrhythmia - HPI Summary HPI Summary: The patient is a 52 year old female who presents with heart palpitations that began about 3 hours ago. The patient reports it feels like fluttering her chest that is associated with shortness of breath and dizziness. She denies chest pain , as well as recent illness. She reports she took some Tylenol when the palpitations began. The patient reports this has happened once or twice before. - History of Current Complaint Chief Complaint: EDDysrhythmPalp Time Seen by Provider: 03/17/18 12:17 Hx Obtained From: Patient Onset/Duration: Sudden Onset, Lasting Hours - 3 hours, Still Present Timing: Constant Severity Initially: Mild Severity Currently: Mild Character: Fluttering Aggravating: Nothing Alleviating: Nothing Associated Signs & Symptoms: Negative - Chest pain, Dizzy, Shortness of Breath - Allergy/Home Medications Allergies/Adverse Reactions: Allergies Allergy/AdvReac Type Severity Reaction Status Date / Time celecoxib [From Celebrex] Allergy Nausea And Verified 03/17/18 12:23 Vomiting ketorolac [From Toradol] Allergy Headache Verified 03/17/18 12:23 procaine Allergy Airway Verified 03/17/18 12:23 Obstruction "sawyer family" Allergy Unknown Uncoded 03/17/18 12:23 Reaction Details Home Medications: Home Medications Montelukast Sodium TAB* [Singulair TAB*] 10 mg PO DAILY 03/17/18 [History Confirmed 03/17/18] Simvastatin (NF) [Zocor (NF)] 40 mg PO DAILY 03/17/18 [History Confirmed ] SitaGLIPtin (NF) [Januvia (NF)] 100 mg PO DAILY 03/17/18 [History Confirmed 12/04] traMADol TAB* [Ultram*] 50 - 100 mg PO Q6HR PRN 03/17/18 [History Confirmed 12/04] PMH/Surg Hx/FS Hx/Imm Hx Endocrine/Hematology History: Reports: Hx Diabetes - TYPE 2 , NO MEDS, DIET CONTROLLED, Other Endocrine/Hematological Disorders - 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); hypothyriodism Denies: Hx Thyroid Disease Cardiovascular History: Reports: Hx Hypercholesterolemia - triglyceridemia, Hx Hypertension - ON MEDICATION Denies: Hx Cardiac Arrest, Hx Myocardial Infarction Respiratory History: Reports: Hx Seasonal Allergies, Hx Sleep Apnea - new cpap user Denies: Hx Asthma, Hx Chronic Obstructive Pulmonary Disease (COPD) GI History: Reports: Hx Gastroesophageal Reflux Disease, Other GI Disorders - fatty liver Denies: Hx Ulcer Musculoskeletal History: Reports: Other Musculoskeletal History - joint & neck pain, mylagia, itchy skin, no rash Neurological History: Reports: Hx Headaches, Hx Migraine, Other Neuro Impairments/Disorders - some numbness/tingling (right) arm Psychiatric History: Reports: Hx Depression - Cancer History Hx Chemotherapy: No Hx Radiation Therapy: No - Surgical History Surgery Procedure, Year, and Place: hysterectomy 2004. c section x 3 - Immunization History Date of Tetanus Vaccine: utd Date of Influenza Vaccine: utd Infectious Disease History: No Infectious Disease History: Reports: Hx Shingles Denies: Hx Clostridium Difficile, Hx Hepatitis, Hx Human Immunodeficiency Virus (HIV), Hx of Known/Suspected MRSA, Hx Tuberculosis, Hx Known/Suspected VRE , Hx Known/Suspected VRSA, History Other Infectious Disease, Traveled Outside the [place] in Last 30 Days - Family History Known Family History: Positive: Cardiac Disease, Hypertension, Diabetes - Social History Occupation: Employed Full-time Alcohol Use: None Hx Substance Use: No Substance Use Type: Reports: None Substance Use Comment - Amount & Last Used: Flexeril PRN Hx Tobacco Use: No Smoking Status (MU): Former Smoker Type: Cigarettes Amount Used/How Often: QUIT 11 years ago Length of Time of Smoking/Using Tobacco: 20 years Have You Smoked in the Last Year: No Review of Systems Negative: Fever, Chills Negative: Erythema Negative: Sore Throat Positive: Palpitations. Negative: Chest Pain Positive: Shortness Of Breath. Negative: Cough Negative: Abdominal Pain, Vomiting, Nausea Negative: dysuria, hematuria Negative: Myalgia, Edema Negative: Rash Neurological: Other - Dizziness All Other Systems Reviewed And Are Negative: Yes Physical Exam - Summary Physical Exam Summary: Constitutional: Well-developed, Well-nourished, Alert. (-) Distressed Skin: Warm, Dry HENT: Normocephalic; Atraumatic Eyes: Conjunctiva normal Neck: Musculoskeletal ROM normal neck. (-) JVD, (-) Stridor, (-) Tracheal deviation Cardio: Rhythm regular, rate normal, Heart sounds normal; irregular pulse ; The pedal pulses are 2+ and symmetric. Radial pulses are 2+ and symmetric. (-) Murmur Pulmonary/Chest wall: Effort normal. (-) Respiratory distress, (-) Wheezes, (-) Rales Abd: Soft, (-) Tenderness, (-) Distension, (-) Guarding, (-) Rebound Musculoskeletal: (-) Edema Lymph: (-) Cervical adenopathy Neuro: Alert, Oriented x3 Psych: Mood and affect Normal Triage Information Reviewed: Yes Vital Signs On Initial Exam: Initial Vitals Temp Pulse Resp BP Pulse Ox 99 F 80 16 160/91 96 03/17/18 12:01 03/17/18 12:01 03/17/18 12:01 03/17/18 12:01 03/17/18 12:01 Vital Signs Reviewed: Yes Diagnostics - Vital Signs Vital Signs Temp Pulse Resp BP Pulse Ox 03/17/18 12:01 99 F 80 16 160/91 96 - Laboratory Result Diagrams: 03/17/18 12:52 03/17/18 12:52 Lab Statement: Any lab studies that have been ordered have been reviewed, and results considered in the medical decision making process. - EKG 12:23 Cardiac Rate: NL EKG Rhythm: Sinus Rhythm - 80 BPM EKG Interpretation: Ventricular premature complexes, no STEMI 13:59 Cardiac Rate: NL EKG Rhythm: Sinus Rhythm - 91 bpm EKG Interpretation: Lateral T wave flattening Course/Dx - Course Course Of Treatment: The patient is a 52 year old female who presents with fluttering chest, shortness of breath, and dizziness that began about 3 hours ago. Bloodwork and urinalysis were obtained. I discussed the patient with Dr. Sim, cardiology, who recommended that we do cardiac rule out. The patient is diagnosed with chest pressure, PVCs, palpitations. The patient [place] [facility] - Diagnoses Provider Diagnoses: Chest pressure, PVCs (premature ventricular contractions), Palpitations - Physician Notifications Discussed Care Of Patient With: Héctor Sim Time Discussed With Above Provider: 14:22 Instructed by Provider To: Other - Dr. Sim, cardiology, recommended cardiac rule out. Discharge - Sign-Out/Discharge Documenting (check all that apply): Discharge/Admit/Transfer - Discharge Plan Condition: Good Disposition: ADMITTED TO [facility] The documentation as recorded by the Rubin nelson Jennifer accurately reflects the service I personally performed and the decisions made by me, Jace Higuera MD.
== END 2018-03-18 17:10 | disposition home or self-care (01) ==
LOC: ED 11:58 → MEDTELE 15:05
PROVIDERS: ADMIT Internal Medicine; ATTEND Internal Medicine
DX: R07.9 Chest pain, unspecified (principal); R00.2 Palpitations; I49.3 Ventricular premature depolarization; E11.9 Type 2 diabetes mellitus without complications; G47.30 Sleep apnea, unspecified; E66.9 Obesity, unspecified; K21.9 Gastro-esophageal reflux disease without esophagitis; E78.5 Hyperlipidemia, unspecified; E03.9 Hypothyroidism, unspecified; Z79.899 Other long term (current) drug therapy; Z88.8 Allergy status to other drugs, medicaments and biological substances; Z87.891 Personal history of nicotine dependence; Z79.84 Long term (current) use of oral hypoglycemic drugs
CPT/HCPCS: 36415; 71046; 78452; 80048; 80053; 81003; 83036; 83605; 83735; 84443; 84484; 85025; 85379; 93005; 93017; 96372; 99284; A9270-GY; A9502; G0378; J1644

== ENCOUNTER → 2018-10-01 18:33 | Emergency (ER) | payer BC, OTHER ==
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
[2018-10-01 20:11] VITALS: BP 105/71
== END | disposition home or self-care (01) ==
LOC: ED 18:33
DX: R07.9 Chest pain, unspecified (principal); S10.91XA Abrasion of unspecified part of neck, initial encounter; V43.52XA Car driver injured in collision with other type car in traffic accident, initial encounter; Y92.9 Unspecified place or not applicable; E11.9 Type 2 diabetes mellitus without complications; E78.5 Hyperlipidemia, unspecified; E03.9 Hypothyroidism, unspecified; Z87.891 Personal history of nicotine dependence; E78.00 Pure hypercholesterolemia, unspecified; K21.9 Gastro-esophageal reflux disease without esophagitis; F32.9 Major depressive disorder, single episode, unspecified
CPT/HCPCS: 71111; 99281

== ENCOUNTER 2018-12-12 08:47 | Emergency (ER) | payer BC ==
[2018-12-12 09:23] VITALS: BP 144/89
--- NOTE | 2018-12-12 09:46 | UC ---
FLU HPI - HPI Summary HPI Summary: started 3 day sago with headache, fatigue, cough, ST. did have Flu vacc in Aug. 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 has had fever everyday. currently 99.9 after tylenol - History of Current Complaint Chief Complaint: UCRespiratory Stated Complaint: RESP Time Seen by Provider: 12/12/18 09:19 Hx Obtained From: Patient ?: No Onset/Duration: Sudden Onset Severity Currently: Moderate Severity Initially: Moderate Pain Intensity: 4 Associated Signs & Symptoms: Positive: Fever, Cough, Sore Throat, Headache Related Hx: Possible Flu/Infectious Exposure - Allergy/Home Medications Allergies/Adverse Reactions: Allergies Allergy/AdvReac Type Severity Reaction Status Date / Time celecoxib [From Celebrex] Allergy Nausea And Verified 12/12/18 09:23 Vomiting diclofenac Allergy GI Upset Verified 12/12/18 09:23 ketorolac [From Toradol] Allergy Headache Verified 12/12/18 09:23 procaine Allergy Airway Verified 12/12/18 09:23 Obstruction Home Medications: Home Medications Docusate Sodium [Colace] 100 mg PO DAILY WITH MEAL 12/12/18 [History Confirmed 12/12/18] Levocetirizine Dihydrochloride [Xyzal] 5 mg PO DAILY WITH MEAL 12/12/18 [ History Confirmed 12/12/18] Losartan Potassium [Cozaar] 50 mg PO DAILY WITH MEAL 12/12/18 [History Confirmed 12/12/18] PMH/Surg Hx/FS Hx/Imm Hx Previously Healthy: Yes Endocrine History: Diabetes, Hypothyroidism, Dyslipidemia Cardiovascular History: Hypertension GI/ History: Gastroesophageal Reflux Psychological History: Depression - Surgical History Surgical History: Yes Surgery Procedure, Year, and Place: hysterectomy 2005. c section x 3 - Family History Known Family History: Positive: Cardiac Disease, Hypertension, Diabetes - Social History Occupation: Employed Full-time Lives: With Family Alcohol Use: None Substance Use Type: None Substance Use Comment - Amount & Last Used: Flexeril PRN Smoking Status (MU): Former Smoker Type: Cigarettes Amount Used/How Often: QUIT 11 years ago Length of Time of Smoking/Using Tobacco: 20 years Have You Smoked in the Last Year: No When Did the Patient Quit Smoking/Using Tobacco: 2004 Review of Systems All Other Systems Reviewed And Are Negative: Yes Constitutional: Positive: Fever, Fatigue Skin: Positive: Negative Eyes: Positive: Negative ENT: Positive: Sore Throat, Ear Ache, Sinus Congestion Respiratory: Positive: Cough. Negative: Shortness Of Breath Cardiovascular: Positive: Negative Psychological: Positive: Negative Is Patient Immunocompromised?: No Physical Exam Triage Information Reviewed: Yes Appearance: Obese Vital Signs: Initial Vital Signs Temp 99.9 F 12/12/18 09:18 Pulse 103 12/12/18 09:18 Resp 20 12/12/18 09:18 BP 144/89 12/12/18 09:18 Pulse Ox 97 12/12/18 09:18 Vital Signs Reviewed: Yes Eye Exam: Normal ENT: Positive: Pharyngeal erythema, Nasal congestion, TM dull Neck exam: Normal Neck: Positive: Supple, Nontender, No Lymphadenopathy Respiratory: Positive: Lungs clear, Other: - prod cough with deep breaths Cardiovascular Exam: Normal Cardiovascular: Positive: RRR Neurological Exam: Normal Psychological Exam: Normal Skin Exam: Normal Skin: Negative: Rashes Flu Course/Dx - Differential Dx/Diagnosis Differential Diagnosis/HQI/PQRI: Influenza, Upper Respiratory Infection Provider Diagnosis: Influenza A Discharge - Sign-Out/Discharge Documenting (check all that apply): Patient Departure All imaging exams completed and their final reports reviewed: No Studies - Discharge Plan Condition: Stable Disposition: HOME Prescriptions: Oseltamivir CAP* [Tamiflu CAP*] 75 mg PO BID #10 cap Patient Education Materials: Influenza (ED) Referrals: Kirt Cam MD [Primary Care Provider] - 2 Days (if no better) Additional Instructions: drink plenty of fluids and rest start Tamiflu SAMANTHA ibuprofen or tylenol as directed for fever and pain - Billing Disposition and Condition Condition: STABLE Disposition: Home
[2018-12-12 09:50] LABS: Influenza A Molecular POSITIVE (Negative)
== END 2018-12-12 10:21 | disposition home or self-care (01) ==
LOC: UCEAST 08:47
DX: J10.1 Influenza due to other identified influenza virus with other respiratory manifestations (principal); I10 Essential (primary) hypertension; E11.9 Type 2 diabetes mellitus without complications; H92.09 Otalgia, unspecified ear; E66.9 Obesity, unspecified; Z79.899 Other long term (current) drug therapy; Z88.8 Allergy status to other drugs, medicaments and biological substances; Z87.891 Personal history of nicotine dependence; Z88.1 Allergy status to other antibiotic agents
CPT/HCPCS: 99212; G0463

== ENCOUNTER 2020-01-20 17:10 | Emergency (ER) | payer BC ==
--- OUTSIDE RECORDS SUMMARY | 2020-01-20 17:41 | XMS REPORT | Continuity of Care Document ---
:1965 External Reference #:[id number] Author Name Darell Richard MD (transmitted by agent of provider Annette Aldridge) Address [address] [place] [id number] Problems Active Problems Provider Date Multiple joint pain Matthew Diego M.D. Onset: 09/22/2012 Immunological Findings Nonspecified Matthew Diego M.D. Onset: 09/22/2012 Other & Unspecified Medications Certified Histologic Technician (Current) Use Matthew Diego M.D. Onset: 12/24/2012 Encounter Sleep apnea JOSELYN Saxena Onset: 04/14/2014 Obstructive sleep apnea syndrome Alpa Slaughter DNP, RN, Onset: 11/17/2013 [facility]- Body mass index 40+ - severely obese Alpa Slaughter DNP, RN, Onset: [facility] Social History Type Date Description Comments Sex Unknown Tobacco Use Start: Unknown End: Former Cigarette Smoker Smoking Status Reviewed: 12/29/19 Former Cigarette Smoker ETOH Use Denies alcohol use Tobacco Use Start: Unknown End: Patient is a former smoker Unknown Recreational Drug Use Denies Drug Use Exercise Type/Frequency Exercises sporadically Allergies, Adverse Reactions, Alerts Active Allergies Reaction Severity Comments Date Novocain 01/20/2012 Diclofenac gi upset 03/02/2012 Medications Active Medications SIG Qnty Indications Ordering Provider Date Levothyroxine Sodium 1 by mouth Unknown 10/19/2015 112mcg every day Tablets Singulair 1 by mouth Unknown 10/19/2015 10mg Tablets every day Zocor 1 po qhs 90tabs Unknown 40mg Tablets Paxil 1 po qd 30tabs Unknown 40mg Tablets Protonix 1 by mouth Unknown 40mg Tablets DR every day Cyclobenzaprine HCL take one Unknown 5mg tablet by Tablets mouth every 8 hours prn. may take a second tablet if first not effetive. Januvia 1 by mouth Other Physician 100mg Tablets daily Practices Metformin HCL 1 by mouth Greg Mittal, 500mg Tablets three times MD per day Losartan Potassium 1 by mouth one Kirt Cam, 50mg time per day MD Tablets Multivitamin Adults 50+ For Women. One Unknown Adlt by mouth one 50+ Tablets time per day Immunizations Description No Information Available Vital Signs Date Vital Result Comment 12/29/2019 8:43am Height 59 inches 4'11" Weight 246.00 lb Heart Rate 95 /min BP Systolic 143 mmHg BP Diastolic 87 mmHg Body Temperature 96.5 F Pain Level 2 O2 % BldC Oximetry 97 % BMI (Body Mass Index) 49.7 kg/m2 06/01/2019 8:47am Height 59 inches 4'11" Weight 242.50 lb Heart Rate 80 /min BP Systolic Sitting 136 mmHg Lue large cuff BP Diastolic Sitting 88 mmHg Lue large cuff Respiratory Rate 16 /min O2 % BldC Oximetry 96 % On Ra BMI (Body Mass Index) 49.0 kg/m2 Results Description No Information Available Procedures Description No Information Available Medical Devices Description No Information Available Encounters Description No Information Available Assessments Date Code Description Provider 12/29/2019 M81.8 Other osteoporosis without current pathological Darell Richard MD fracture 12/29/2019 R53.83 Other fatigue Darell Richard MD 12/29/2019 M18.0 Bilateral primary osteoarthritis of first Darell Richard MD carpometacarpal joints 12/29/2019 M25.561 Pain in right knee Darell Richard MD 12/29/2019 M25.551 Pain in right hip Darell Richard MD 12/29/2019 G89.4 Chronic pain syndrome Darell Richard MD 12/29/2019 R25.2 Cramp and spasm Darell Richard MD 12/29/2019 M25.562 Pain in left knee Darell Richard MD Plan of Treatment Future Appointment(s):03/28/2020 8:30 am - Darell Richard MD at [facility]05/31/2020 8:15 am - Alpa Slaughter DNP, RN, DIRECTOR [employer]ENCY-[facility] at [facility]12/29/2019 - Darell Richard, MDM81.8 Other osteoporosis without current pathological fractureNew Xrays:Dexa Bone Dens Axial Skeleton (Hips, Pelvis, Spine), Ordered: 12/29/19Follow up:3 ojssabG51.83 Other [id number] Bilateral primary osteoarthritis of first carpometacarpal jointsNew Therapy:Occupational [id number] Pain in right kneeNew Therapy:Physical JnejtvsQ02.551 Pain in right hipG89.4 Chronic pain syndromeComments:Consider PCP switching the paxil for cymbalta (duloxetine) or effexor (venlafaxine)R25.2 Cramp and bspqtM66.562 Pain in left knee Functional Status Description No Information Available Mental Status Description No Information Available Referrals Description No Information Available
[2020-01-20 17:45] LABS: ABS Basophils 0.1 10^3/ul (0-0.2); ABS Eosinophils 0.2 10^3/ul (0-0.6); ABS Lymphocytes 2.8 10^3/ul (1.0-4.8); ABS Monocytes 0.6 10^3/ul (0-0.8); ABS Neutrophils 3.9 10^3/ul (1.5-7.7); Eosinophil % 2.8 %; Hematocrit 38 % (35-47); Hemoglobin 13.4 g/dL (12.0-16.0); Lymphocyte % 36.6 %; Mean Corpuscular HGB Conc 35 g/dL (31-36); Mean Corpuscular Hemoglobin 30 pg (27-31); Mean Corpuscular Volume 85 fL (80-97); Platelet Count 217 10^3/uL (150-450); Red Blood Count 4.47 10^6 /uL (3.70-4.87); Red Cell Distribution Width 13 % (10-15); White Blood Count 7.6 10^3/uL (3.5-10.8)
[2020-01-20 18:02] LABS: Albumin 4.4 g/dL (3.2-5.2); Albumin/Globulin Ratio 1.4 (1-3); Calcium 10.1 mg/dL (8.6-10.3); EGFR African American 124.1 (>60); EGFR Non-African American 102.6 (>60); Globulin 3.1 g/dL (2-4); Potassium 3.8 mmol/L (3.5-5.0); Total Bilirubin 0.4 mg/dL (0.2-1.0); Total Protein 7.5 g/dL (6.4-8.9)
--- NOTE | 2020-01-20 18:44 | ED ---
HPI Chest Pain - HPI Summary HPI Summary: 54 year old F arriving via private car to [facility] complains of intermittent episodes of chest flutters and occasional chest tightness starting yesterday while sitting at her desk at work. "Feels like there is a butterfly in my chest. " Each episode lasts for several seconds. Had similar symptoms 2 years ago. Patient denies any fever, chills, new diaphoresis, erythema of eyes, sore throat , shortness of breath, cough, abdominal pain, nausea/vomiting, dysuria, hematuria, myalgia, edema, pain in bilateral lower extremities, rash, dizziness. Symptoms aggravated by caffeine. Symptoms alleviated by nothing. Medications reviewed. Allergies noted. Former smoker. She states she drinks Diet Pepsi daily. Hx diabetes. Home Medications Medication Instructions Recorded Confirmed Type PARoxetine HCL TAB* [Paxil TAB*] 40 mg PO DAILY 08/26/12 12/12/18 History Pantoprazole TAB * [Protonix TAB*] 40 mg PO DAILY 08/24/16 12/12/18 History Cyclobenzaprine TAB* [Flexeril 10 5 - 10 mg PO BEDTIME PRN 01/06/17 12/12/18 History MG TAB*] Levothyroxine TAB* [Synthorid 112 112 mcg PO QAM 01/06/17 12/12/18 History MCG TAB*] Montelukast Sodium TAB* [Singulair 10 mg PO DAILY 03/17/18 12/12/18 History 10 MG TAB*] Simvastatin (NF) [Zocor (NF)] 40 mg PO DAILY 03/17/18 12/12/18 History SitaGLIPtin (NF) [Januvia (NF)] 100 mg PO DAILY 03/17/18 12/12/18 History traMADol TAB* [Ultram*] 50 - 100 mg PO Q6HR PRN 03/17/18 12/12/18 History Docusate Sodium [Colace] 100 mg PO DAILY WITH MEAL 12/12/18 12/12/18 History Levocetirizine Dihydrochloride 5 mg PO DAILY WITH MEAL 12/12/18 12/12/18 History [Xyzal] Losartan Potassium [Cozaar] 50 mg PO DAILY WITH MEAL 12/12/18 12/12/18 History Oseltamivir CAP* [Tamiflu CAP*] 75 mg PO BID #10 cap 12/12/18 Rx - History of Current Complaint Chief Complaint: EDChestPainROMI Time Seen by Provider: 01/20/20 18:30 Hx Obtained From: Patient Onset/Duration: Started Days Ago - 1, Still Present Timing: Intermittent, Lasting Seconds Current Severity: None Pain Intensity: 0 Pain Scale Used: 0-10 Numeric Character: Caffeine Aggravating Factor(s): Nothing Alleviating Factor(s): Nothing Associated Signs and Symptoms: Positive: Negative - fever, chills, new diaphoresis, erythema of eyes, sore throat, shortness of breath, cough, abdominal pain, nausea/vomiting, dysuria, hematuria, myalgia, edema, pain in bilateral lower extremities, rash, dizziness - Allergy/Home Medications Allergies/Adverse Reactions: Allergies Allergy/AdvReac Type Severity Reaction Status Date / Time celecoxib [From Celebrex] Allergy Nausea And Verified 12/12/18 09:23 Vomiting diclofenac Allergy GI Upset Verified 12/12/18 09:23 ketorolac [From Toradol] Allergy Headache Verified 12/12/18 09:23 procaine Allergy Airway Verified 12/12/18 09:23 Obstruction Home Medications: Home Medications PARoxetine HCL TAB* [Paxil TAB*] 40 mg PO DAILY 08/26/12 [History Confirmed ] Pantoprazole TAB * [Protonix TAB*] 40 mg PO DAILY 08/24/16 [History Confirmed ] Cyclobenzaprine TAB* [Flexeril 10 MG TAB*] 5 - 10 mg PO BEDTIME PRN 01/06/17 [ History Confirmed 12/12/18] Levothyroxine TAB* [Synthorid 112 MCG TAB*] 112 mcg PO QAM 01/06/17 [History Confirmed 12/12/18] Montelukast Sodium TAB* [Singulair 10 MG TAB*] 10 mg PO DAILY 03/17/18 [History Confirmed 12/12/18] Simvastatin (NF) [Zocor (NF)] 40 mg PO DAILY 03/17/18 [History Confirmed ] SitaGLIPtin (NF) [Januvia (NF)] 100 mg PO DAILY 03/17/18 [History Confirmed ] traMADol TAB* [Ultram*] 50 - 100 mg PO Q6HR PRN 03/17/18 [History Confirmed ] Docusate Sodium [Colace] 100 mg PO DAILY WITH MEAL 12/12/18 [History Confirmed 12/12/18] Levocetirizine Dihydrochloride [Xyzal] 5 mg PO DAILY WITH MEAL 12/12/18 [ History Confirmed 12/12/18] Losartan Potassium [Cozaar] 50 mg PO DAILY WITH MEAL 12/12/18 [History Confirmed 12/12/18] Oseltamivir CAP* [Tamiflu CAP*] 75 mg PO BID #10 cap 12/12/18 [Rx] PMH/Surg Hx/FS Hx/Imm Hx Endocrine/Hematology History: Reports: Hx Diabetes - Type II, Hx Thyroid Disease , Other Endocrine/Hematological Disorders - 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); hypothyriodism Cardiovascular History: Reports: Hx Angina, Hx Hypercholesterolemia - triglyceridemia, Hx Hypertension - ON MEDICATION Denies: Hx Cardiac Arrest, Hx Coronary Artery Disease, Hx Myocardial Infarction, Hx Valvular Heart Disease Respiratory History: Reports: Hx Seasonal Allergies, Hx Sleep Apnea - new cpap user Denies: Hx Asthma, Hx Chronic Obstructive Pulmonary Disease (COPD) GI History: Reports: Hx Gastroesophageal Reflux Disease, Other GI Disorders - fatty liver Denies: Hx Ulcer Musculoskeletal History: Reports: Other Musculoskeletal History - joint & neck pain, mylagia, itchy skin, no rash Denies: Hx Osteoporosis Sensory History: Denies: Hx Contacts or Glasses, Hx Hearing Aid Opthamlomology History: Denies: Hx Contacts or Glasses Neurological History: Reports: Hx Headaches, Hx Migraine, Other Neuro Impairments/Disorders - some numbness/tingling (right) arm Psychiatric History: Reports: Hx Depression - Cancer History Hx Chemotherapy: No Hx Radiation Therapy: No - Surgical History Surgery Procedure, Year, and Place: hysterectomy 2004. c section x 3 - Immunization History Date of Tetanus Vaccine: utd Date of Influenza Vaccine: utd Infectious Disease History: No Infectious Disease History: Reports: Hx Shingles Denies: Hx Clostridium Difficile, Hx Hepatitis, Hx Human Immunodeficiency Virus (HIV), Hx of Known/Suspected MRSA, Hx Tuberculosis, Hx Known/Suspected VRE , Hx Known/Suspected VRSA, History Other Infectious Disease, Traveled Outside the [place] in Last 30 Days - Family History Known Family History: Positive: Cardiac Disease, Hypertension, Diabetes - Social History Alcohol Use: None Hx Substance Use: Yes Substance Use Type: Reports: None Substance Use Comment - Amount & Last Used: Flexeril PRN Hx Tobacco Use: Yes Smoking Status (MU): Former Smoker Type: Cigarettes Amount Used/How Often: QUIT Length of Time of Smoking/Using Tobacco: 20 years Have You Smoked in the Last Year: No Review of Systems Negative: Fever, Chills, Skin Diaphoresis Negative: Erythema Negative: Sore Throat Positive: Other - chest flutters, chest tightness Negative: Shortness Of Breath, Cough Negative: Abdominal Pain, Vomiting, Nausea Negative: dysuria, hematuria Musculoskeletal: Negative - pain in bilateral lower extremities Negative: Myalgia, Edema Negative: Rash Neurological/Mental Status: Negative - Dizziness All Other Systems Reviewed And Are Negative: Yes Physical Exam - Summary Physical Exam Summary: Constitutional: Well-developed, Well-nourished, Alert. (-) Distressed Skin: Warm, Dry HENT: Normocephalic; Atraumatic Eyes: Conjunctiva normal Neck: Musculoskeletal ROM normal neck. (-) JVD, (-) Stridor, (-) Tracheal deviation Cardio: Rhythm regular, rate normal, Heart sounds normal; Intact distal pulses; The pedal pulses are 2+ and symmetric. Radial pulses are 2+ and symmetric. (-) Murmur Pulmonary/Chest wall: Effort normal. (-) Respiratory distress, (-) Wheezes, (-) Rales Abd: Soft, (-) tenderness, (-) Distension, (-) Guarding, (-) Rebound Musculoskeletal: (-) Edema Lymph: (-) Cervical adenopathy Neuro: Alert, Oriented x3 Psych: Mood and affect Normal Triage Information Reviewed: Yes Vital Signs On Initial Exam: Initial Vitals Temp Pulse Resp BP Pulse Ox 98.0 F 104 20 154/87 98 01/20/20 17:37 01/20/20 17:37 01/20/20 17:37 01/20/20 17:37 01/20/20 17:37 Vital Signs Reviewed: Yes Procedures - Sedation Patient Received Moderate/Deep Sedation with Procedure: No Diagnostics - Vital Signs Vital Signs Temp Pulse Resp BP Pulse Ox 01/20/20 17:37 98.0 F 104 20 154/87 98 - Laboratory Lab Results: Lab Results 01/20/20 01/20/20 01/20/20 Range/Units 17:37 17:37 17:37 WBC 7.6 (3.5-10.8) 10^3/uL RBC 4.47 (3.70-4.87) 10^6 /uL Hgb 13.4 (12.0-16.0) g/dL Hct 38 (35-47) % MCV 85 (80-97) fL MCH 30 (27-31) pg MCHC 35 (31-36) g/dL RDW 13 (10-15) % Plt Count 217 (150-450) 10^3/uL MPV 8.0 (7.4-10.4) fL Neut % (Auto) 51.7 % Lymph % (Auto) 36.6 % [place] % (Auto) 7.9 % Eos % (Auto) 2.8 % Baso % (Auto) 1.0 % Absolute Neuts (auto) 3.9 (1.5-7.7) 10^3/ul Absolute Lymphs (auto) 2.8 (1.0-4.8) 10^3/ul Absolute Monos (auto) 0.6 (0-0.8) 10^3/ul Absolute Eos (auto) 0.2 (0-0.6) 10^3/ul Absolute Basos (auto) 0.1 (0-0.2) 10^3/ul Absolute Nucleated RBC 0.0 10^3/ul Nucleated RBC % 0.0 INR (Anticoag Therapy) 1.00 (0.82-1.09) Sodium 136 (135-145) mmol/L Potassium 3.8 (3.5-5.0) mmol/L Chloride 101 (101-111) mmol/L Carbon Dioxide 26 (22-32) mmol/L Anion Gap 9 (2-11) mmol/L BUN 14 (6-24) mg/dL Creatinine 0.61 (0.51-0.95) mg/dL Est GFR ( Amer) 124.1 (>60) Est GFR (Non-Af Amer) 102.6 (>60) BUN/Creatinine Ratio 23.0 H (8-20) Glucose 185 H (70-100) mg/dL Calcium 10.1 (8.6-10.3) mg/dL Total Bilirubin 0.40 (0.2-1.0) mg/dL AST 27 (13-39) U/L ALT 38 (7-52) U/L Alkaline Phosphatase 80 (34-104) U/L Troponin I 0.00 (<0.03) ng/mL Total Protein 7.5 (6.4-8.9) g/dL Albumin 4.4 (3.2-5.2) g/dL Globulin 3.1 (2-4) g/dL Albumin/Globulin Ratio 1.4 (1-3) Result Diagrams: 01/20/20 17:37 01/20/20 17:37 Lab Statement: Any lab studies that have been ordered have been reviewed, and results considered in the medical decision making process. - EKG 1728 Cardiac Rate: NL - 98 BPM EKG Rhythm: Sinus Rhythm Summary of EKG Findings: ED physician has reviewed and interpreted this EKG. Chest Pain Course/Dx - Course Course Of Treatment: 54 y/o F with hx diabetes presents with intermittent episodes of chest flutters and occasional chest tightness starting yesterday. Each episode lasts for several seconds. She drinks soda daily. Physical exam unremarkable. Bloodwork results with no significant abnormalities. An EKG shows NSR 98 BPM. No STEMI. We interpreted telemetry. Multiple PVCs visualized during the examination. Patient will be discharged home with prescription follow up from her primary care provider in 2-3 days. She was advised to decrease her caffeine intake. Patient was instructed to return to Emergency Department for new or worsening symptoms. Patient understands and is agreeable to this plan. - Diagnoses Provider Diagnoses: Adverse reaction to caffeine, PVCs (premature ventricular contractions) Discharge ED - Sign-Out/Discharge Documenting (check all that apply): Patient Departure - Discharge Plan Condition: Stable Disposition: HOME Patient Education Materials: Premature Ventricular Contractions (ED) Referrals: Kirt Cam MD [Primary Care Provider] - 2 Days Additional Instructions: Cut back on your caffeine intake. Please follow up with your primary care provider in 2-3 days. Return to the Emergency Department for changing or worsening symptoms. - Attestation Statements Document Initiated by Scribe: Yes Documenting Scribe: Shanell No Provider For Whom Scribe is Documenting (Include Credential): Jace Higuera MD Scribe Attestation: Shanell Sun, scribed for Jace Higuera MD on 01/20/20 at 1903. Status of Scribe Document: Ready
[2020-01-20 19:11] VITALS: BP 133/89
[2020-01-20 19:57] LABS: Magnesium 1.6 mg/dL (1.9-2.7)
[2020-01-20 20:04] LABS: TSH (Thyroid Stimulating Horm) 3.04 mcIU/mL (0.34-5.60)
[2020-01-20 20:07] LABS: Free T4 0.79 ng/dL (0.61-1.12)
== END 2020-01-20 19:10 | disposition home or self-care (01) ==
LOC: ED 17:10
DX: I49.3 Ventricular premature depolarization (principal); T43.615A Adverse effect of caffeine, initial encounter; E11.9 Type 2 diabetes mellitus without complications; K21.9 Gastro-esophageal reflux disease without esophagitis; E03.9 Hypothyroidism, unspecified; E78.00 Pure hypercholesterolemia, unspecified; Y92.9 Unspecified place or not applicable; Z87.891 Personal history of nicotine dependence; Z79.890 Hormone replacement therapy; Z79.899 Other long term (current) drug therapy
CPT/HCPCS: 36415; 80053; 83735; 84439; 84443; 84484; 85025; 85610; 93005; 99282

== ENCOUNTER 2020-09-25 09:11 | Inpatient (IN) ==
[~2020-09-25 09:11] MED LIST: Buffered Lidocaine 1% SYRIN 1 ml INTRADERM ONE; Ketamine HCL 50 mg/ml 10 ml VIAL (500 MG) ONE; Lactated Ringers 1000 ml BAG 1,000 ML IV SCH; Lidocaine 2% PF 5 ML VIAL ONE; Midazolam 5 mg/5 ml VIAL 1 mg/ml 5 ml VIAL (5 mg) ONE; Propofol 10 MG/ML 20 ML BTL ONE; Rocuronium 50 mg VIAL 10 mg/ml 5 ml VIAL (50 mg) ONE; Sodium Citrate/Citric Acid LIQ 15 ML UDC PO ONE; fentaNYL 250 mcg/5 ml 50 MCG/ML 5 ml VIAL (250 MCG) ONE
[2020-09-25] MEDS ORDERED: Heparin 5000 UNITS/ML 1 mL VIAL ONE (09:35)
[2020-09-25] MEDS ORDERED: Sodium Citrate/Citric Acid LIQ 15 ML UDC ONE (09:36)
[2020-09-25] MEDS ORDERED: ceFAZolin 1 GM ADVAN 1 GM ADDV.VIAL IVPB ONE (09:36)
[2020-09-25] MEDS ORDERED: ceFAZolin 2 GM PREMIX 2 GM/50 ML BAG ONE (09:36)
[2020-09-25] MEDS ORDERED: Metoprolol Tartrate 5 mg VIAL 5 ml VIAL (1 mg/ml) ONE (10:56)
[2020-09-25] MEDS ORDERED: hydrALAZINE 20 mg/ml 1 ML Vial IV ONE (10:56)
[2020-09-25] MEDS ORDERED: Methylene Blue 0.5 % 50 MG/10 ML AMP IV ONE (11:28)
[2020-09-25] MEDS ORDERED: Bupivacaine 0.25% SDV 30 ML ONE (11:28)
[2020-09-25] MEDS ORDERED: Naloxone 0.4 mg VIAL 0.4 mg/ml 1 ml VIAL IV PRN (12:23)
[2020-09-25] MEDS ORDERED: HYDROmorphone 1 MG/1 ML SYRINGE IV PRN (12:23)
[2020-09-25] MEDS ORDERED: Ondansetron 4 mg VIAL 2 MG/ML 2 ml VIAL IV PRN (12:23)
[2020-09-25] MEDS ORDERED: fentaNYL 100 mcg/2 ml 50 MCG/ML VIAL IV PRN (12:23)
[2020-09-25] MEDS ORDERED: Rocuronium 50 mg VIAL 10 mg/ml 5 ml VIAL (50 mg) ONE (12:37)
[2020-09-25] MEDS ORDERED: Ondansetron 4 mg VIAL 2 MG/ML 2 ml VIAL ONE (12:37)
[2020-09-25] MEDS ORDERED: Dexamethasone IV 4 MG/ML VIAL 1 ml VIAL ONE (12:37)
[2020-09-25] MEDS ORDERED: fentaNYL 250 mcg/5 ml 50 MCG/ML 5 ml VIAL (250 MCG) ONE (13:33)
[2020-09-25] MEDS ORDERED: Propofol 10 MG/ML 20 ML BTL ONE (15:44)
[2020-09-25] MEDS ORDERED: Dextrose 50% Syringe 50 ml 25 GM/50 ML SYRINGE IV PUSH PRN (16:38)
[2020-09-25] MEDS ORDERED: fentaNYL 100 mcg/2 ml 50 MCG/ML VIAL ONE (17:08)
[2020-09-25] MEDS: Ondansetron 4 mg VIAL 2 MG/ML 2 ml VIAL IV PRN ×2 (18:42→23:39)
[2020-09-25] MEDS: Lactated Ringers 1000 ml BAG 1,000 ML IV SCH (18:43)
[2020-09-25] MEDS: Famotidine IV 10 MG/ML 2 ml VIAL (20 mg) IV SLOW PU SCH (21:19)
[2020-09-25] MEDS: Heparin 5000 UNITS/ML 1 mL VIAL SUBCUT SCH (23:39)
[2020-09-26] MEDS: Ondansetron 4 mg VIAL 2 MG/ML 2 ml VIAL IV PRN ×4 (00:50→19:41)
[2020-09-26] MEDS: Lactated Ringers 1000 ml BAG 1,000 ML IV SCH ×2 (01:57→08:02)
[2020-09-26] MEDS: Heparin 5000 UNITS/ML 1 mL VIAL SUBCUT SCH ×3 (05:51→22:15)
[2020-09-26] MEDS: HYDROmorphone 0.5 MG/0.5 ML SYRINGE IV SLOW PU PRN ×2 (05:51→09:53)
[2020-09-26 06:32] LABS: ABS Lymphocytes 1.7 10^3/ul (1.0-4.8); ABS Monocytes 0.9 10^3/ul (0-0.8); ABS Neutrophils 6.2 10^3/ul (1.5-7.7); Hematocrit 35 % (35-47); Hemoglobin 11.7 g/dL (12.0-16.0); Lymphocyte % 19.2 %; Mean Corpuscular HGB Conc 34 g/dL (31-36); Mean Corpuscular Hemoglobin 29 pg (27-31); Mean Corpuscular Volume 87 fL (80-97); Mean Platelet Volume 8.5 fL (7.4-10.4); Platelet Count 203 10^3/uL (150-450); Red Cell Distribution Width 13 % (10-15); White Blood Count 8.8 10^3/uL (3.5-10.8)
[2020-09-26] MEDS: Famotidine IV 10 MG/ML 2 ml VIAL (20 mg) IV SLOW PU SCH ×2 (09:53→22:15)
[2020-09-26] MEDS: D5W 1/2 NS KCl 20 meq 1000 ml 1,000 ML IV SCH (14:50)
[2020-09-26] MEDS: HYDROcodone/ACET. 7.5/325 LIQ 15 ML UDC PO PRN (19:41)
[2020-09-27] MEDS: D5W 1/2 NS KCl 20 meq 1000 ml 1,000 ML IV SCH ×2 (00:03→08:46)
[2020-09-27] MEDS: HYDROcodone/ACET. 7.5/325 LIQ 15 ML UDC PO PRN (04:40)
[2020-09-27] MEDS: Ondansetron 4 mg VIAL 2 MG/ML 2 ml VIAL IV PRN (04:43)
[2020-09-27] MEDS: Heparin 5000 UNITS/ML 1 mL VIAL SUBCUT SCH (06:34)
[2020-09-27] MEDS: Famotidine IV 10 MG/ML 2 ml VIAL (20 mg) IV SLOW PU SCH (08:47)
[2020-09-27 11:13] VITALS: BP 125/64
[2020-09-28] MEDS ORDERED: Scopolamine PATCH Remove NOTE PATCH OFF SCH (22:00)
== END 2020-09-27 12:05 | disposition home or self-care (01) | DRG 403 ==
LOC: AA 09:11 → SSU 16:31
PROVIDERS: ADMIT Surgery; ATTEND Surgery